=== PATIENT | female | born 1970 | race Caucasian/White ===

== ENCOUNTER → 2016-12-25 | Outpatient (CLI) | payer BC ==
--- NOTE | 2016-12-25 15:04 | DIAGNOSTIC IMAGING REPORT ---
KUB CLINICAL HISTORY: Right flank pain, tenderness and trace hematuria. COMPARISON STUDY: None. FINDINGS: A 3 mm right pelvic calcific density is noted. This projects over the expected course of the distal right ureter although a phlebolith could appear similar. Bowel gas pattern is normal. No renal calculi are identified. IMPRESSION: 3 mm right pelvic calcific density. Given the clinical history, this could reflect a distal right ureteral calculus although a phlebolith could appear similar. Electronically signed by: [place] Sutherland M.D. 12/25/2016 3:02 PM Dictated Date/Time: 12/25/2016 3:01 PM
== END | disposition home or self-care (01) ==
LOC: C.RAD1850 14:43
PROVIDERS: ATTEND Family Medicine
DX: R10.9 Unspecified abdominal pain (principal); N20.1 Calculus of ureter

== ENCOUNTER → 2017-01-01 | Outpatient (CLI) | payer BC ==
--- NOTE | 2017-01-01 12:41 | DIAGNOSTIC IMAGING REPORT ---
CT SCAN OF THE ABDOMEN AND PELVIS WITHOUT CONTRAST CLINICAL HISTORY: R10.9 Flank pain RIGHT-SIDED COMPARISON STUDY: No previous studies for comparison. TECHNIQUE: CT scan of the abdomen and pelvis was performed from the lung bases to the proximal femurs. Images are reviewed in the axial, sagittal, and coronal planes. IV contrast was not administered for this examination. CT DOSE: 397.97 mGy.cm FINDINGS: Lower chest: The heart is normal in size and configuration, without pericardial effusion. The lung bases and pleural spaces are clear. Liver: The unenhanced liver is normal in size, contour, and attenuation. There is no intrahepatic biliary ductal dilatation. Gallbladder: Unremarkable. Spleen: There is a subtle 6 mm splenic hypodensity. Pancreas: Unremarkable. Adrenal glands: Unremarkable. Kidneys: There is a 2 mm left renal calculus. No ureteral calculi are visualized. There is minimal fullness of the right renal quadrant consistent with proximal right ureter. Given the history this could be secondary to a recently passed or radiolucent calculus. Bowel: There are no transition zones indicate bowel obstruction. The appendix appears normal. Peritoneum: There is trace free pelvic fluid likely physiologic. Vasculature: The abdominal aorta is normal in course and caliber. Adenopathy: None. Pelvic viscera: Evaluation of the pelvis is limited due to the lack of oral contrast. The uterus is either atrophic or surgically absent. Skeletal structures: No destructive osseous lesions are seen. IMPRESSION: 1. 2 mm nonobstructing left renal calculus 2. Minimal fullness the right renal collecting system and proximal right ureter. No calculi are visualized. Given history of right flank pain, one cannot exclude a recently passed or radiolucent calculus. Clinical follow-up is advocated 3. No evidence of bowel obstruction. No evidence of free air 4. Normal appendix Electronically signed by: Fareed Chin M.D. 01/01/2017 12:40 PM Dictated Date/Time: 01/01/2017 12:34 PM
== END | disposition home or self-care (01) ==
LOC: C.CTS 11:12
PROVIDERS: ATTEND Family Medicine
DX: R10.9 Unspecified abdominal pain (principal); N20.0 Calculus of kidney

== ENCOUNTER → 2017-01-07 | Outpatient (CLI) | payer BC ==
[2017-01-07 11:50] LABS: URINE APPEARANCE CLEAR (CLEAR); URINE BILIRUBIN NEG (NEG); URINE COLOR YELLOW; URINE NITRITE NEG (NEG); URINE PH 7.5 (4.5-7.5); URINE SPECIFIC GRAVITY 1.009 (1.000-1.030); UROBILINOGEN NEG (NEG)
[2017-01-07 11:52] LABS: MANUAL MICROSCOPIC REQUIRED? NO; REVIEW REQ? NO
== END | disposition home or self-care (01) ==
LOC: C.LAB1850 10:31
PROVIDERS: ATTEND Nurse Practitioner
DX: R30.0 Dysuria (principal)

== ENCOUNTER → 2017-05-07 | Outpatient (CLI) | payer BC | END | disposition home or self-care (01) | LOC: C.PAPS 16:13 | PROVIDERS: ATTEND Obstetrics & Gynecology | DX: Z01.419 Encounter for gynecological examination (general) (routine) without abnormal findings (principal) ==

== ENCOUNTER → 2017-05-11 | Outpatient (CLI) | payer BC ==
[2017-05-11 09:59] LABS: CALCULATED INSULIN SENSITIVITY 0.431; GLUCOSE LOG 1.9031; INSULIN FASTING 2.6 mU/L (3-25); INSULIN LOG 0.415
[2017-05-11 10:00] LABS: THYROID STIMULATING HORMONE 2.35 uIu/ml (0.300-4.500)
== END | disposition home or self-care (01) ==
LOC: C.LAB 07:47
PROVIDERS: ATTEND Obstetrics & Gynecology
DX: R63.5 Abnormal weight gain (principal)

== ENCOUNTER → 2017-06-09 | Outpatient (CLI) | payer BC ==
[2017-06-09 15:49] LABS: THYROID STIMULATING HORMONE 1.62 uIu/ml (0.300-4.500)
[2017-06-12 13:47] LABS: THYROGLOBULIN 1.5 NG/ML (2.8-40.9)
== END | disposition home or self-care (01) ==
LOC: C.LAB 11:51
PROVIDERS: ATTEND Nurse Practitioner Adult Health
DX: R94.6 Abnormal results of thyroid function studies (principal)

== ENCOUNTER → 2017-07-01 | Outpatient (CLI) | payer BC ==
[2017-07-01 17:09] LABS: PROLACTIN 14.82 ng/mL
[2017-07-01 17:10] LABS: THYROID STIMULATING HORMONE 2.22 uIu/ml (0.300-4.500)
[2017-07-03 13:04] LABS: MICROSOMAL AB 5 IU/ML (<9)
== END | disposition home or self-care (01) ==
LOC: C.LAB1850 16:02
PROVIDERS: ATTEND Internal Medicine Endocrinology, Diabetes & Metabolism
DX: E03.9 Hypothyroidism, unspecified (principal); Z78.0 Asymptomatic menopausal state; R90.89 Other abnormal findings on diagnostic imaging of central nervous system

== ENCOUNTER → 2017-07-09 | Outpatient (CLI) | payer BC ==
--- NOTE | 2017-07-13 15:29 | MAMMOGRAPHY REPORT ---
BILATERAL DIGITAL SCREENING MAMMOGRAM TOMOSYNTHESIS WITH CAD: 07/09/2017 CLINICAL HISTORY: Routine screening. Patient has no complaints. TECHNIQUE: Breast tomosynthesis in addition to standard 2D mammography was performed. Current study was also evaluated with a Computer Aided Detection (CAD) system. COMPARISON: Comparison is made to exams dated: 06/04/2016 mammogram, 05/22/2015 mammogram, 05/10/2014 mammogram, 04/20/2014 mammogram, 04/05/2013 mammogram, and 04/01/2012 mammogram - [facility]. BREAST COMPOSITION: The tissue of both breasts is heterogeneously dense, which may obscure small mas ses. FINDINGS: No suspicious masses, calcifications, or areas of architectural distortion are noted in ei ther breast. There has been no significant interval change compared to prior exams. Scattered bilater al benign-appearing calcifications are not significantly changed. IMPRESSION: ACR BI-RADS CATEGORY 2: BENIGN There is no mammographic evidence of malignancy. A 1 year screening mammogram is recommended. The pa tient will receive written notification of the results. Approximately 10% of breast cancers are not detected with mammography. A negative mammographic report should not delay biopsy if a clinically suggestive mass is present. Angelina Waters M.D. ah/:07/09/2017 17:13:05 [employer]munition Specialist: Molly GAMEZ)(Deepika)(BD), [facility] letter sent: Normal 1/2 BI-RADS Code: ACR BI-RADS Category 2: Benign
== END | disposition home or self-care (01) ==
LOC: C.MAMM 15:17
PROVIDERS: ATTEND Obstetrics & Gynecology
DX: Z12.31 Encounter for screening mammogram for malignant neoplasm of breast (principal)

== ENCOUNTER → 2017-07-13 | Outpatient (CLI) | payer BC ==
[~2017-07-13] MED LIST: GADAVIST IV PRN
--- NOTE | 2017-07-13 09:52 | DIAGNOSTIC IMAGING REPORT ---
Brain and pituitary MRI WITH AND WITHOUT CONTRAST HISTORY: TECHNIQUE: Multiplanar multisequence MRI of the brain and pituitary gland were performed both before and after the intravenous administration of contrast. COMPARISON STUDY: Brain MRI 03/30/2007. FINDINGS: There are no areas of restricted diffusion to suggest acute infarction. The midline structures are intact. The paranasal sinuses are clear. The mastoid air cells are clear. The ventricles and sulci are within normal limits for age. There is no mass, hematoma, midline shift. The major vascular flow-voids at the skull base are well maintained. Postcontrast sequences show no areas of abnormal enhancement. Small developmental venous anomaly within the right frontal lobe is considered a normal variant. The pituitary gland is normal in size and shape. There is a normal posterior pituitary bright spot. The pituitary gland enhances homogeneously. No suprasellar masses. The pituitary stalk is normal in course and caliber. IMPRESSION: No acute intracranial abnormality. Normal pituitary gland. Electronically signed by: Andres Rey M.D. 07/13/2017 9:51 AM Dictated Date/Time: 07/13/2017 9:45 AM
== END | disposition home or self-care (01) ==
LOC: C.MRIBC 08:12
PROVIDERS: ATTEND Internal Medicine Endocrinology, Diabetes & Metabolism
DX: R93.0 Abnormal findings on diagnostic imaging of skull and head, not elsewhere classified (principal); R94.6 Abnormal results of thyroid function studies; E03.9 Hypothyroidism, unspecified; R90.89 Other abnormal findings on diagnostic imaging of central nervous system

== ENCOUNTER → 2017-08-13 | Outpatient (CLI) | payer OTHER | END | disposition home or self-care (01) | LOC: C.LAB1850 15:56 | PROVIDERS: ATTEND Internal Medicine Endocrinology, Diabetes & Metabolism | DX: E03.9 Hypothyroidism, unspecified (principal) ==

== ENCOUNTER → 2017-10-14 | Outpatient (CLI) | payer OTHER | END | disposition home or self-care (01) | LOC: C.LAB1850 15:44 | PROVIDERS: ATTEND Internal Medicine Endocrinology, Diabetes & Metabolism | DX: E03.9 Hypothyroidism, unspecified (principal) ==

== ENCOUNTER → 2018-03-11 | Outpatient (CLI) | payer OTHER | END | disposition home or self-care (01) | LOC: C.LAB 10:54 | PROVIDERS: ATTEND Internal Medicine Endocrinology, Diabetes & Metabolism | DX: E03.9 Hypothyroidism, unspecified (principal); E55.9 Vitamin D deficiency, unspecified ==